=== PATIENT | female | born 1980 | race Hispanic/Latino ===

== ENCOUNTER 2021-11-25 15:52 | Observation (INO) | payer OTHER, SELFPAY ==
[2021-11-25] VITALS (31 sets, daily range): BP systolic 112–137; BP diastolic 48–83; PULSE 59–73; RESP 14–22; TEMP 36.3–36.6; O2SAT 100; BMI 28.5
[2021-11-25 16:15] LABS: Basophils Absolute Auto 0.1 K/mm3 (0.0-0.1); Basophils Percent Auto 1.2 % (0.2-1.2); Eosinophils Absolute Auto 0.3 K/mm3 (0-0.3); Eosinophils Percent Auto 4.4 % (0-4.4); Hematocrit 23.6 % (37.0-47.0); Immature Granulocyte Absolute 0.01 K/mm3 (0.00-0.031); Immature Granulocyte Percent A 0.2 % (0-0.5); Lymphocytes Absolute Auto 1.66 K/mm3 (0.9-3.2); Mean Corpuscular HGB Conc 26.7 g/dl (32-36); Mean Corpuscular Hemoglobin 17.2 pg (26-34); Mean Corpuscular Volume 64.3 fl (80-100); Mean Platelet Volume 9.7 fl (7.4-10.4); Monocytes Absolute Auto 0.5 K/mm3 (0.1-0.6); Monocytes Percent Auto 9.1 % (2.6-8.5); Neutrophils Absolute Auto 3.4 K/mm3 (1.3-6.7); Neutrophils Percent Auto 57.1 % (45.5-73.1); Platelet Count Result 454 k/mm3 (150-375); Red Blood Count 3.67 M/mm3 (4.2-5.4); White Blood Count 5.9 K/mm3 (4.5-10.0)
[2021-11-25 16:24] LABS: Alanine Aminotransferase 15 U/L (4-35); Albumin Level 4.4 g/dL (3.5-5.1); Alkaline Phosphatase 51 U/L (38-126); Anion Gap 7 mmol/L (8-16); Aspartate Amino Transferase 31 U/L (14-36); Bilirubin,Total < 0.1 mg/dL (0.2-1.3); Blood Urea Nitrogen 11 mg/dL (7-17); Calcium 8.2 mg/dL (8.4-10.2); Carbon Dioxide 26 mmol/L (22-30); Chloride 105 mmol/L (98-107); Estimated CRCL calculation 65 ml/min; Estimated Glomerular Filt Rate > 60; Glucose 100 mg/dL (65-110); Potassium 3.8 mmol/L (3.4-5.0); Sodium 138 mmol/L (137-145)
[2021-11-25 16:26] LABS: Prothrombin Time 13.2 Seconds (11.1-14.7)
[2021-11-25 16:27] LABS: Partial Thromboplastin Time 30.2 SECONDS (22.3-36.8)
[2021-11-25 16:28] LABS: Hemoglobin 6.3 g/dL (12.0-15.0)
[2021-11-25 16:29] LABS: Hypochromasia 2+ (NORMAL); Ovalocytes 1+ (NORMAL); Platelet Estimate Increased (Adequate)
--- NOTE | 2021-11-25 17:10 | ED.RECABL ---
HPI - Recheck/Abnormal Lab/Rx General Chief Complaint: Recheck/Abnormal Lab/Rx Stated Complaint: abnormal labs Time Seen by Provider: 11/25/21 16:57 History of Present Illness HPI narrative: Patient is a 41-year-old female who presents ER with low hemoglobin. Patient has been having dizziness and weakness outpatient and her doctor performed outpatient lab testing. Informed her that she was anemic and she should go to the ER for further evaluation. Patient denies any dark black stools or coffee-ground emesis. She denies menorrhagia. Reports history of anemia for which she is taking iron in the past. Reports compliance with home medications. Dizziness is spinning and can occur at rest or with standing. No chest pain or chest pressure. No diarrhea. Patient is able to eat. Related Data Allergies Allergy/AdvReac Type Severity Reaction Status Date / Time No Known Allergies Allergy Verified 11/25/21 17:20 Review of Systems Review of Systems: All systems reviewed & are unremarkable except as noted in HPI and below Constitutional: Constitutional: Denies chills, Reports fatigue, Denies fever(s) and Reports weakness ENT: Denies nasal congestion and Denies sore throat Cardiovascular: Cardiovascular: Denies chest pain, Denies rapid heart rate and Denies radiating jaw, neck or arm pain Respiratory: Respiratory: Denies cough and Denies dyspnea Gastrointestinal: Gastrointestinal: Denies abdominal pain, Denies diarrhea, Denies nausea and Denies vomiting Genitourinary: Genitourinary: Denies abnormal vaginal bleeding and Denies vaginal discharge PMFSH Past Medical History Medical History (Updated 11/25/21 @ 21:21 by Neftaly Colon MD) History of anemia Surgical History Surgical History (Updated 11/25/21 @ 17:12 by Neftaly Colon MD) No pertinent past surgical history Social History Social History (Updated 11/25/21 @ 17:12 by Neftaly Colon MD) Smoking status: Never smoker Exam Narrative: GENERAL: Well-appearing, well-nourished, and in no acute distress. HEAD: Normocephalic, atraumatic. EYES: PERRL and EOMI. pale conjunctiva. CHEST: Clear to auscultation. No respiratory distress. HEART: Regular rate and rhythm. Normal peripheral pulses. ABDOMEN: Soft, mild discomfort in left lower quadrant without rebound or guarding, nondistended. EXTREMITIES: Normal range of motion. No edema. SKIN: Warm, dry, no rash. Pale in appearance. NEURO: Alert and oriented x3. PSYCH: Normal mood and affect. Course Course Emergency Course: Patient informed of results. Admit to hospitalist service. Will transfuse. Vital Signs Vital signs: Vital Signs Temperature 97.6 F 11/25/21 16:01 Pulse Rate 71 11/25/21 16:01 Respiratory Rate 16 11/25/21 16:01 Blood Pressure 112/48 L 11/25/21 16:01 Pulse Oximetry 100 11/25/21 16:01 Temperature 97.4 F L 11/25/21 19:15 Pulse Rate 72 11/25/21 19:31 Respiratory Rate 18 11/25/21 19:31 Blood Pressure 131/83 11/25/21 19:31 Pulse Oximetry 100 11/25/21 19:31 MDM - Recheck/Abnormal Lab/Rx Lab Data Result diagrams: 11/25/21 16:08 11/25/21 16:08 Labs: Lab Results 11/25/21 11/25/21 11/25/21 Range/Units 16:08 16:08 16:08 WBC 5.9 (4.5-10.0) K/mm3 RBC 3.67 L (4.2-5.4) M/mm3 Hgb 6.3 L* (12.0-15.0) g/dL Hct 23.6 L (37.0-47.0) % MCV 64.3 L (80-100) fl MCH 17.2 L (26-34) pg MCHC 26.7 L (32-36) g/dl RDW 19.0 H (11.5-14.5) % Plt Count 454 H (150-375) k/mm3 MPV 9.7 (7.4-10.4) fl Immature Gran % (Auto) 0.2 (0-0.5) % Neut % (Auto) 57.1 (45.5-73.1) % Lymph % (Auto) 28.0 (18.3-44.2) % [place] % (Auto) 9.1 H (2.6-8.5) % Eos % (Auto) 4.4 (0-4.4) % Baso % (Auto) 1.2 (0.2-1.2) % Lymph # (Auto) 1.66 (0.9-3.2) K/mm3 [place] # (Auto) 0.5 (0.1-0.6) K/mm3 Eos # (Auto) 0.3 (0-0.3) K/mm3 Baso # (Auto) 0.1 (0.0-0.1) K/mm3 Abs Immat Gran (aut
[2021-11-25 17:24] LABS: Immature Reticulocyte Fraction 9.7 % (3.0-15.9); Reticulocyte Hemoglobin Conten 15.3 pg (28.2-35.7); Reticulocyte Percent 1.72 % (0.7-4.3); Reticulocytes Absolute 0.06 B/L (32.2-175.7)
[2021-11-25] MEDS: SODIUM CHLORIDE 0.9% IV 250 ML 30 ML IV CONT (17:58)
[2021-11-25 18:05] LABS: SARS-CoV-2 RNA PCR Negative
[2021-11-25] MEDS: TUBING, BLOOD PLUM PUMP TUBING 1 EACH XX (18:11)
[2021-11-25 18:50] LABS: Folic Acid 10.2 ng/mL (2.76->20); Vitamin B12 > 1000.0 pg/mL (239-931)
[2021-11-25 19:36] LABS: Iron 16 ug/dL (37-170)
[2021-11-25 19:46] LABS: Percent Iron Saturation 3 % (20-50)
[2021-11-25 20:13] LABS: Ferritin 3.75 ng/mL (6.24-137)
--- NOTE | 2021-11-25 20:19 | PM.IMHP ---
H&P: HPI History of Present Illness Date/Time: 11/25/21 20:19 Chief Complaint: Dizziness. Narrative: This is a 41-year-old female patient presents to the emergency room for evaluation after she was seen by her doctor due to dizziness for the last was 2 weeks or so she was found to have a hemoglobin 6.3. Patient states that there was 1 other time where she had similar problems however she has no recollection of events at that time can not tell exactly any studies that were done or what were the results. Patient denies any melena, bright red blood per rectum, coffee-ground emesis, hematemesis, she was feeling nauseous but no vomiting she was fatigue and dizzy and she was drinking in oatmeal and rise water to help it. Patient denies heavy menses or bleeding in between periods. Patient denies any unintentional weight loss has had good appetite and would say that her diet is good. Patient denies any abdominal pain, have has had paresthesias of bilateral lower extremities. Decision has been made to admit the patient for further evaluation, management and treatment. Review of Systems Review of Systems: Dizziness, nausea, bilateral lower extremity paresthesia, fatigue. Constitutional: Constitutional: Denies chills, Reports fatigue, Denies fever(s), Reports lethargy, Denies malaise, Denies night sweats, Denies poor appetite, Denies weakness and Denies weight loss Eyes: Eyes: Denies change in vision ENT: Denies dysphagia, Reports dizziness, Denies nasal congestion, Denies nasal discharge, Denies nasal obstruction and Denies odynophagia Cardiovascular: Cardiovascular: Denies chest pain, Denies pedal edema, Denies leg edema, Reports lightheadedness, Denies palpitations and Denies dyspnea Respiratory: Respiratory: Denies cough Gastrointestinal: Gastrointestinal: Denies abdominal pain, Denies melena, Denies hematochezia, Denies change in bowel habits, Denies dyspepsia, Denies heartburn, Denies diarrhea, Reports nausea, Denies vomiting and Denies hematemesis Genitourinary: Genitourinary: Denies dysuria Musculoskeletal: Musculoskeletal: Denies back pain, Denies arthralgias, Denies muscle cramps and Denies muscle weakness Integumentary/Breasts: Skin/Breast: Denies rash Neurologic: Denies focal weakness, Reports restless legs, Denies Sensory deficit (Neuro) and Reports tingling (Bilateral lower extremities.) Psychiatric: Psychiatric: Denies behavioral changes and Denies difficulty concentrating Endocrine: Endocrine: Denies cold intolerance, Denies heat intolerance, Denies polyphagia, Denies polydipsia, Denies polyuria and Denies palpitations Hematologic/Lymphatic: Hematologic/Lymphatic: Denies easy bleeding and Denies easy bruising Allergic/Immunologic: Allergic/Immunologic: Reports no additional allergic/immunologic complaints and Reports as per [facility] Past Medical History Medical History (Updated 11/26/21 @ 00:49 by Manjinder Brown MD) History of anemia Surgical History Surgical History (Updated 11/25/21 @ 17:12 by Neftaly Colon MD) No pertinent past surgical history Family History Family History (Updated 11/25/21 @ 23:36 by Manjinder Brown MD) Other Diabetes mellitus Social History Social History (Updated 11/25/21 @ 23:37 by Manjinder Brown MD) Smoking status: Never smoker Second hand tobacco smoke exposure: No Alcohol intake: never Substance use: never Substance use type: does not use Living arrangements: with family Spiritual care concerns: No Meds Home Medications and Allergies Home Medications Medication Instructions Recorded Confirmed Type No Home Medications 11/25/21 11/25/21 History Allergies Allergy/AdvReac Type Severity Reaction Status Date / Time No Known Allergies Allergy Verified 11/25/21 17:20 Vital Signs Vital Signs - 24 hr 11/25/21 16:01 11/25/21 17:11 11/25/21 17:15 Temperature 97.6 F Pulse Rate 71 68 71 Respiratory Rate 16 22 H 20 Blood P
[2021-11-25] MEDS: ACETAMINOPHEN 325 MG TABLET 650 MG PO (23:27)
--- NOTE | 2021-11-25 23:33 | ADMGEN ---
This patient, Jennifer Iraheta, was admitted to [address] [facility] Surg Room 324-01. Patient/family oriented to hospital policies and general routines including ID bracelet, bed and alarms, visiting hours, pain management, procedures, bathroom and other care routines, personal items, smoking policy, room service/diet, and visiting hours. Information on how to activate the Rapid Response Team has been discussed. Patient/Family are encouraged to report perceived risks to care and to ask questions if they do not understand what they are told or what they should do.
--- NOTE | 2021-11-25 23:39 | PC.NURSE ---
11/25/21 2312 pt arrived to floor w/family member roopa munguiaz (daughter). pt requested daughter translate during pt admission.
[2021-11-26 06:00] VITALS: BP 106/73; PULSE 64; RESP 16; TEMP 36.8; O2SAT 100
[2021-11-26 09:07] LABS: Hemoglobin 9.4 g/dL (12.0-15.0); Mean Corpuscular HGB Conc 28.5 g/dl (32-36); Mean Corpuscular Hemoglobin 19.6 pg (26-34); Mean Corpuscular Volume 68.9 fl (80-100); Platelet Count Result 459 k/mm3 (150-375); Red Blood Count 4.79 M/mm3 (4.2-5.4); White Blood Count 4.8 K/mm3 (4.5-10.0)
[2021-11-26] MEDS: FERROUS SULFATE 324 MG TABLET PO ×3 (10:15→17:34)
[2021-11-26 14:00] VITALS: BP 126/72; PULSE 58; RESP 16; TEMP 36.6; O2SAT 98
--- NOTE | 2021-11-26 14:50 | PCCCNOTE ---
On 11/26/21, the student, [Vilma Blackwell], provided care and completed [facility] documentation on this patient. I have reviewed the student's documentation and agree with the findings.
[2021-11-26 16:50] LABS: SPREG INTERNAL CONTROL Positive; Serum Qual hCG Negative
--- NOTE | 2021-11-26 17:06 | PM.DS ---
DS: Admitting Diagnosis Discharge Date 11/26/21 Admitting Diagnosis Weak DS: Discharge Diagnosis Discharge Diagnosis (1) Iron deficiency anemia: Code(s): D50.9 - Iron deficiency anemia, unspecified Status: Acute DS: Summary Hospital Course Reason for hospitalization: 41yo healthy female with hx of anemia here for wekaness and found to be anemic again. Please see H&P for details Hospital Course: In the emergency room, patient was hemodynamically stable. White count was normal. Hemoglobin was 6.3 and all of her indices were low. Platelet count was mildly elevated at 454K. Iron level was 16 with TIBC 478 an iron saturation 3%. Ferritin was low at 3.7. COVID was negative. B12 and folate levels were normal. test was negative. PT and PTT were normal. Patient was typed and crossed. No auto antibodies noted. Patient was transfused 2 units of packed red blood cells. Hemoglobin climbed to 9.3. Symptoms resolved. Patient is feeling better. She denies any lightheadedness, chest pain shortness of breath with walking. She does not have [place] menorrhagia. She normally bleed 2-3 days a month. She states her periods are not heavy. She is not on a vegetarian diet and does eat iron containing foods. She was on oral iron in the past but has not been so recently. She denies hemoptysis, epistaxis, hematemesis, hematuria, melena or hematochezia. GI was consulted but unable to get EGD today. Spoke with the GI doctor and he recommended outpatient evaluation. Patient was informed through a director consumer. Patient overall did well and was able to be discharged home on 11/26/2021. Status at Discharge Cognitive/behavioral status at discharge: Stable Time Spent with Patient Time attestation: Total time spent providing and/or coordinating discharge services: 34 minutes Time spent: Greater than 30 minutes Exam Narrative: AF 98.0 126/72 58 16 98% ra Gen - NARD Chest - CTA bilaterally, nml RR CV - RRR S1/S2 Abd - Soft, NT/ND, Positive BS Ext - No pedal edema Psych - Nml mood and affect Skin - Warm and dry DS: Data Data Completed and Pending Labs on day of discharge: Labs from last 24 hours 11/26/21 11/26/21 11/25/21 15:59 08:51 17:17 WBC 4.8 RBC 4.79 Hgb 9.4 L D Hct 33.0 L MCV 68.9 L D MCH 19.6 L D MCHC 28.5 L RDW 23.0 H Plt Count 459 H MPV 10.0 Absolute Retic Percent Retic Immature Retic Fraction Retic Hgb Content Iron TIBC % Saturation Ferritin Vitamin B12 Folate Serum HCG, Qual Negative SARS-CoV-2 RNA (RT-PCR) Negative Blood Type Antibody Screen Crossmatch 11/25/21 11/25/21 11/25/21 17:17 17:17 16:08 WBC RBC Hgb Hct MCV MCH MCHC RDW Plt Count MPV Absolute Retic 0.06 L Percent Retic 1.72 Immature Retic Fraction 9.7 Retic Hgb Content 15.3 L Iron 16 L TIBC 478 H % Saturation 3 L Ferritin 3.75 L Vitamin B12 > 1000.0 H Folate 10.2 Serum HCG, Qual SARS-CoV-2 RNA (RT-PCR) Blood Type Antibody Screen Crossmatch 11/25/21 16:08 WBC RBC Hgb Hct MCV MCH MCHC RDW Plt Count MPV Absolute Retic Percent Retic Immature Retic Fraction Retic Hgb Content Iron TIBC % Saturation Ferritin Vitamin B12 Folate Serum HCG, Qual SARS-CoV-2 RNA (RT-PCR) Blood Type A Positive Antibody Screen Negative Crossmatch See Detail Discharge Plan Discharge Attending physician on discharge: Eliseo Spicer Discharging Clinician: Eliseo Spicer Anticipated Discharge Date/Time: 11/26/21 17:15 Patient Disposition: Home, Self-Care Activity: as tolerated Diet: regular and heart healthy Discharge Instructions: Please avoid large gathering, wear face coverings in public and practice social distance. Contact your doctor or call 911 and come to the Emergency Room if you have any
--- NOTE | 2021-11-26 17:55 | PC.NURSE ---
Discharge instructions given to patient via conservation scientist.
== END 2021-11-26 18:05 | disposition home or self-care (01) ==
LOC: ANHED 21:21 → ANH3MEDSUR 11-26 09:16 → ANH2MED 11-30 10:52 → ANH3MEDSUR 11-30 10:52
PROVIDERS: Admitting Provider Hospitalist; Emergency Provider Emergency Medicine; Visit Provider Internal Medicine
DX: D50.9 Iron deficiency anemia, unspecified (principal); R42 Dizziness and giddiness
CPT/HCPCS: 36415; 36430; 80053; 82607; 82728; 82746; 83540; 83550; 84703; 85025; 85027; 85046; 85610; 85730; 86850; 86900; 86901; 86920; 96360; 96361; 99285; A9270; C9803; G0378; G0379; J7050; P9016; U0003; U0005

== ENCOUNTER 2022-11-17 09:14 | Outpatient (CLI) | payer OTHER, SELFPAY ==
--- NOTE | 2022-11-17 11:00 | NEURO_ITS ---
Impression: Patient reports a history of pain and numbness in right upper extremity. # Normal nerve conduction study. # Normal needle/EMG exam. # Clinical correlation recommended. Nerve Conduction Studies Anti Sensory Summary Table Stim Site NR Peak (ms) P-T Amp (?V) Site1 Site2 Delta-P (ms) Dist (cm) Denzel (m/s) Right Median Anti Sensory (2-3nd Digit) Wrist 2.7 46.2 Wrist 2-3nd Digit 2.7 14.0 52 Wrist 2.8 45.5 Wrist 2-3nd Digit 2.7 14.0 52 Right Radial Anti Sensory (Base 1st Digit) Wrist 1.8 71.6 Wrist Base 1st Digit 1.8 0.0 Right Ulnar Anti Sensory (5th Digit) Wrist 2.2 60.2 Wrist 5th Digit 2.2 14.0 64 Motor Summary Table Stim Site NR Onset (ms) O-P Amp (mV) Site1 Site2 Delta-0 (ms) Dist (cm) Denzel (m/s) Right Median Motor (Abd Poll Brev) Wrist 3.3 5.5 Elbow Wrist 3.8 21.0 55 Elbow 7.1 4.1 Right Ulnar Motor (Abd Dig Minimi) Wrist 2.1 8.3 A Elbow Wrist 4.6 27.0 59 A Elbow 6.7 7.1 B Elbow Wrist 3.1 19.0 61 B Elbow 5.2 7.4 F Wave Studies NR F-Lat (ms) L-R F-Lat (ms) Right Median (Mrkrs) (Abd Poll Brev) 26.79 Right Ulnar (Mrkrs) (Abd Dig Min) 24.55 EMG Side Muscle Nerve Root Ins Act Fibs Amp Dur Recrt Comment Right 1stDorInt Ulnar C8-T1 Nml Nml Nml Nml Nml Right Ext Indicis Radial (Post Int) C7-8 Nml Nml Nml Nml Nml Right Ext Digitorum Radial (Post Int) C7-8 Nml Nml Nml Nml Nml Right BrachioRad Radial C5-6 Nml Nml Nml Nml Nml Right PronatorTeres Median C6-7 Nml Nml Nml Nml Nml Right Abd Poll Brev Median C8-T1 Nml Nml Nml Nml Nml MTDD
== END 2022-11-17 09:15 | disposition home or self-care (01) ==
LOC: ANHNEURO 09:15
PROVIDERS: PCP Nurse Practitioner Family; Visit Provider Physician Assistant
DX: R20.2 Paresthesia of skin (principal)
CPT/HCPCS: 95886; 95909

== ENCOUNTER 2023-09-23 09:48 | Emergency (ER) | payer OTHER, SELFPAY ==
[2023-09-23] VITALS (8 sets, daily range): BP systolic 98–117; BP diastolic 52–71; PULSE 54–73; RESP 14–18; TEMP 36.1; O2SAT 99–100
--- NOTE | 2023-09-23 10:09 | ECG_ITS ---
Measurements Intervals [place] Rate: 61 P: 29 OK: 145 QRS: 62 QRSD: 86 T: 43 QT: 401 QTc: 404 Interpretive Statements SINUS RHYTHM NORMAL ECG NO PREVIOUS ECG AVAILABLE FOR COMPARISON Electronically Signed On 09-23-2023 16:53:25 [employer] by Lion Archuleta D.O.
--- NOTE | 2023-09-23 10:10 | ED.DIZZY ---
HPI - Dizziness General Chief Complaint: Dizziness Stated Complaint: dizzy, weakness, nausea Time Seen by Provider: 09/23/23 09:59 History of Present Illness HPI Narrative: 43-year-old Citizen [place]-speaking female with a history of iron deficiency anemia and blood transfusion 2 years ago reports for evaluation for dizziness x1 week. Patient describes the dizziness as the room is spinning and also states it is worse when she goes from sitting to standing position. She reports nausea and states she feels a ?emptiness? in her stomach when she gets nauseous. Denies vision changes, focal numbness or weakness, head injury or trauma, syncope. Denies melena or hematochezia, menorrhagia, chest pain or shortness of breath, abdominal pain, cough or congestion, fever. States she was evaluated 1 week ago at the onset of symptoms at [place] emergency department. She was told she was dehydrated and had anemia and was discharged home. She did not require a blood transfusion at that time. States her symptoms have progressively gotten worse which prompted her to come to the ER today. She does have a PCP and has an appointment with her PCP in 2 days. She was advised to follow up with the clinic in [place] regarding her anemia, however never followed up because she was told they do not have her information. She denies other medical history. She is not currently taking any medications including iron. Related Data Allergies Allergy/AdvReac Type Severity Reaction Status Date / Time No Known Allergies Allergy Verified 09/23/23 09:57 Review of Systems Review of Systems: CONSTITUTIONAL: Denies fever, chills, or sweats. EYES: Denies visual changes, redness, or discharge. ENT: Denies rhinorrhea, congestion, sore throat, or otalgia. CARDIOVASCULAR: Denies chest pain, palpitations, or edema. RESPIRATORY: Denies cough or dyspnea. GASTROINTESTINAL: Denies abdominal pain, nausea, vomiting, or diarrhea. GENITOURINARY: Denies dysuria or hematuria. SKIN: Denies rash or itching. MUSCULOSKELETAL: Denies back pain, joint pain, or myalgia. NEUROLOGIC: Denies headache, numbness, or weakness. PSYCHIATRIC: Denies anxiety or depression. [facility] Past Medical History Medical History History of anemia Surgical History Surgical History No pertinent past surgical history Family History Family History Other Diabetes mellitus Social History Social History Smoking status: Never smoker Second hand tobacco smoke exposure: No Alcohol intake: never Substance use: never Substance use type: does not use Living arrangements: with family Spiritual care concerns: No Exam Narrative: GENERAL: Ill-appearing, no acute distress. HEAD: Normocephalic, atraumatic. EYES: PERRLA and EOMI. ENT: Nares clear, no rhinorrhea or epistaxis. Mucous membranes moist. Bilateral TMs are evans and nonbulging. Normal canals. NECK: Supple. CHEST: Clear to auscultation. No respiratory distress. HEART: Regular rate and rhythm. No murmur heard. Normal peripheral pulses. ABDOMEN: Soft, nontender, nondistended, normal active bowel sounds. EXTREMITIES: Normal range of motion. No edema. SKIN: Warm, dry, no rash. NEURO: No focal deficits. Alert and oriented x3. Cranial nerves 2-12 intact. Strength 5/5 in BUE and BLE. Sensation intact throughout. Normal [id number]. No pronator drift. Course Vital Signs Vital signs: Vital Signs Temperature 97.0 F L 09/23/23 09:52 Pulse Rate 63 09/23/23 09:52 Respiratory Rate 18 09/23/23 09:52 Blood Pressure 105/52 L 09/23/23 09:52 Pulse Oximetry 100 09/23/23 09:52 Oxygen Delivery Room Air 09/23/23 09:52 Temperature 97.0 F L 09/23/23 09:52 Pulse Rate 57 L 09/23/23 14:00
[2023-09-23 10:15] LABS: Basophils Absolute Auto 0.1 K/mm3 (0.0-0.1); Basophils Percent Auto 0.9 % (0.2-1.2); Eosinophils Absolute Auto 0.2 K/mm3 (0-0.3); Eosinophils Percent Auto 3.3 % (0-4.4); Hematocrit 32.2 % (37.0-47.0); Hemoglobin 9.4 g/dL (12.0-15.0); Immature Granulocyte Absolute 0.01 K/mm3 (0.00-0.031); Immature Granulocyte Percent A 0.2 % (0-0.5); Lymphocytes Absolute Auto 2.15 K/mm3 (0.9-3.2); Lymphocytes Percent Auto 39.7 % (18.3-44.2); Mean Corpuscular HGB Conc 29.2 g/dl (32-36); Mean Corpuscular Hemoglobin 21.4 pg (26-34); Mean Corpuscular Volume 73.2 fl (80-100); Mean Platelet Volume 10.4 fl (7.4-10.4); Monocytes Absolute Auto 0.4 K/mm3 (0.1-0.6); Monocytes Percent Auto 8.1 % (2.6-8.5); Neutrophils Absolute Auto 2.6 K/mm3 (1.3-6.7); Neutrophils Percent Auto 47.8 % (45.5-73.1); Platelet Count Result 362 k/mm3 (150-375); Red Cell Distribution Width 16.2 % (11.5-14.5); White Blood Count 5.4 K/mm3 (4.5-10.0)
[2023-09-23] MEDS: MECLIZINE HCL 25 MG TABLET PO (10:17)
[2023-09-23] MEDS: ONDANSETRON INJ 4 MG/2 ML VIAL IV PUSH (10:17)
[2023-09-23] MEDS: SODIUM CHLORIDE 0.9% IV 1,000 ML 999 ML IV CONT ×2 (10:18→11:09)
[2023-09-23 10:20] LABS: Platelet Estimate Adequate (Adequate); Schistocytes None Seen (NORMAL)
[2023-09-23 10:21] LABS: Ovalocytes 1+ (NORMAL); Stomatocytes 2+ (NORMAL)
[2023-09-23 10:27] LABS: Alanine Aminotransferase 16 U/L (6-35); Albumin Level 4.2 g/dL (3.5-5.1); Alkaline Phosphatase 49 U/L (38-126); Anion Gap 7 mmol/L (8-16); Aspartate Amino Transferase 25 U/L (14-36); Bilirubin,Total 0.3 mg/dL (0.2-1.3); Blood Urea Nitrogen 11 mg/dL (7-17); Calcium 9.4 mg/dL (8.4-10.2); Carbon Dioxide 30 mmol/L (22-30); Chloride 101 mmol/L (98-107); Estimated CRCL calculation 82 ml/min; Estimated Glomerular Filt Rate > 60; Glucose 91 mg/dL (65-110); Potassium 4.1 mmol/L (3.4-5.0); Sodium 138 mmol/L (137-145)
[2023-09-23 10:41] LABS: Appearance Urine Clear (Clear); Bilirubin Urine Negative (Negative); Blood Urine Negative (Negative); Color Urine Yellow (Yellow); Glucose Urine UA Negative (Negative); Ketones Urine Negative (Negative); Leukocyte Esterase Ur Negative LEU/UL (Negative); Nitrate Urine Negative (Negative); Protein Urine Negative (Negative); Specific Grav Ur 1.011 (1.001-1.035); Urobilinogen Urine 0.2 mg/dL (<2.0)
[2023-09-23 10:42] LABS: Add Urine Microscopic? NO
[2023-09-23] MEDS: diazePAM INJ (*CRX) 10 MG/2 ML SYRINGE 5 MG IV PUSH (13:16)
== END 2023-09-23 14:35 | disposition home or self-care (01) ==
PROVIDERS: Emergency Provider Physician Assistant; PCP Nurse Practitioner Family
DX: R42 Dizziness and giddiness (principal); D50.9 Iron deficiency anemia, unspecified
CPT/HCPCS: 36415; 80053; 81003; 81025; 83735; 85025; 86850; 86900; 86901; 93005; 96361; 96374; 96375; 99284; A9270; J2405; J3360; J7030

== ENCOUNTER 2024-01-12 10:46 | Emergency (ER) | payer OTHER, SELFPAY ==
--- NOTE | ~2024-01-12 | CT_ITS ---
EXAMINATION: CT abdomen pelvis w con DATE: 01/12/2024 13:35 INDICATION: Right lower quadrant abdominal pain TECHNIQUE: Computed tomography (CT) of the abdomen and pelvis was performed with 100 mL Omnipaque-350 intravenous contrast. Automated exposure control and iterative reconstruction technique were employe d. The dose-length product was 374.80 mGy-cm. COMPARISON: Lung bases are clear. Heart size is normal. No pericardial or pleural effusion. Focal hep atic steatosis at the ligamentum teres. Gallbladder, spleen, pancreas, bilateral adrenal glands and k idneys are normal. There is fluid in the proximal colon consistent with diarrhea. No abnormal bowel w all thickening or obstruction. Normal appendix. Bladder, uterus and bilateral adnexa are unremarkable . 8 mm nabothian cyst at the cervix. No free intraperitoneal gas or fluid. No pathologically enlarged abdominal or pelvic lymphadenopathy. Chronic appearing mild anterior wedging at T11-L1 with moderate spondylosis at the thoracolumbar junction. FINDINGS: Fluid in the proximal colon consistent with nonspecific diarrhea. No other acute intra-abdominal/pelv ic process. IMPRESSION: 1. Reviewed, dictated and finalized at location A. IMPRESSION: 1.
[2024-01-12 10:47] VITALS: BP 121/68; PULSE 83; RESP 16; TEMP 36.6; O2SAT 100
[2024-01-12 11:16] LABS: Basophils Absolute Auto 0.1 K/mm3 (0.0-0.1); Basophils Percent Auto 0.3 % (0.2-1.2); Eosinophils Absolute Auto 0.2 K/mm3 (0-0.3); Eosinophils Percent Auto 0.8 % (0-4.4); Hematocrit 38.2 % (37.0-47.0); Hemoglobin 12.2 g/dL (12.0-15.0); Immature Granulocyte Absolute 0.05 K/mm3 (0.00-0.031); Immature Granulocyte Percent A 0.3 % (0-0.5); Lymphocytes Absolute Auto 0.34 K/mm3 (0.9-3.2); Lymphocytes Percent Auto 1.9 % (18.3-44.2); Mean Corpuscular HGB Conc 31.9 g/dl (32-36); Mean Corpuscular Hemoglobin 26.3 pg (26-34); Mean Corpuscular Volume 82.3 fl (80-100); Mean Platelet Volume 10.6 fl (7.4-10.4); Monocytes Absolute Auto 0.9 K/mm3 (0.1-0.6); Neutrophils Absolute Auto 16.7 K/mm3 (1.3-6.7); Neutrophils Percent Auto 91.7 % (45.5-73.1); Platelet Count Result 352 k/mm3 (150-375); Red Blood Count 4.64 M/mm3 (4.2-5.4); Red Cell Distribution Width 13.3 % (11.5-14.5); White Blood Count 18.2 K/mm3 (4.5-10.0)
[2024-01-12 11:28] LABS: Alanine Aminotransferase 15 U/L (6-35); Albumin Level 4.8 g/dL (3.5-5.1); Alkaline Phosphatase 50 U/L (38-126); Anion Gap 11 mmol/L (4-12); Aspartate Amino Transferase 25 U/L (14-36); Bilirubin,Total 0.6 mg/dL (0.2-1.3); Blood Urea Nitrogen 15 mg/dL (7-17); Calcium 8.9 mg/dL (8.4-10.2); Carbon Dioxide 20 mmol/L (22-30); Chloride 109 mmol/L (98-107); Estimated CRCL calculation 82 ml/min; Estimated Glomerular Filt Rate > 60; Glucose 127 mg/dL (65-110); Lipase 98 U/L (23-300); Potassium 4.3 mmol/L (3.4-5.0); Sodium 140 mmol/L (137-145)
[2024-01-12 11:40] LABS: Appearance Urine Turbid (Clear); Bacteria Urine 4+ /hpf; Bilirubin Urine Negative (Negative); Blood Urine 3+ (Negative); Color Urine Yellow (Yellow); Glucose Urine UA Negative (Negative); Ketones Urine Negative (Negative); Leukocyte Esterase Ur 1+ LEU/UL (Negative); Need Manual Microscopic Reviewed; Nitrate Urine Negative (Negative); Non Pathogenic Casts 0-2; Protein Urine 1+ mg/dL (Negative); RBC Urine 0-2 /hpf (0-2); Specific Grav Ur 1.021 (1.001-1.035); Squamous Epithelial Cell Urine Many /hpf (Few); Urobilinogen Urine 0.2 mg/dL (<2.0); pH Urine 5.5 (5.0-9.0)
[2024-01-12 11:42] LABS: Add Urine Microscopic? YES
--- NOTE | 2024-01-12 12:18 | ED.NAVMDI ---
HPI - Nausea/Vomiting/Diarrhea General Chief complaint: Nausea/Vomiting/Diarrhea Stated complaint: N/V Time Seen by Provider: 01/12/24 12:16 Source: patient Mode of arrival: ambulatory Limitations: language barrier ( Initially attempted to use interpretive services [employer] #[id number] however there are multiple logistical issues with the call having to be attempted multiple times; interpretation eventually assisted by patient's daughter) History of Present Illness HPI Narrative: 43-year-old presents with complaint of nausea, vomiting, and diarrhea that started at 4:00 a.m. this morning. Emesis and stool have been nonbloody. She denies any abdominal pain. She states that she has back/flank pain bilaterally particularly when she vomits. Last oral intake was 9:00 p.m. last night although she has not had an appetite for the past 2 days. She denies any fevers. Her last menstrual cycle was last week. She denies any new medications including no antibiotics. She denies any dysuria, hematuria, urgency, or frequency. She initially denies any prior abdominal surgeries confirms that she still has her gallbladder and appendix however she does state that she has had a prior Caesarean section. Related Data Allergies Allergy/AdvReac Type Severity Reaction Status Date / Time No Known Allergies Allergy Verified 09/23/23 09:57 PMF Past Medical History Medical History History of anemia Surgical History Surgical History History of section Family History Family History Other Diabetes mellitus Social History Social History Smoking status: Never smoker Second hand tobacco smoke exposure: No Alcohol intake: never Substance use: never Substance use type: does not use Living arrangements: with family Spiritual care concerns: No Exam Narrative: GENERAL: Well-appearing, well-nourished, and in no acute distress. HEAD: Normocephalic, atraumatic. EYES: Non injected, non icteric ENT: Nares clear, no rhinorrhea or epistaxis. NECK: Supple. CHEST: Speaking in full sentences. No respiratory distress. HEART: Regular rate and rhythm. . ABDOMEN: Soft, nondistended. Tender to palpation in the right lower quadrant Without rigidity or guarding EXTREMITIES: Normal range of motion. No edema. back/: no bilateral CVA tenderness. SKIN: Warm, dry, no rash. NEURO: No focal deficits. Alert and oriented x3. PSYCH: Normal mood and affect. Course Vital Signs Vital signs: Vital Signs Temperature 97.8 F 01/12/24 10:47 Pulse Rate 83 01/12/24 10:47 Respiratory Rate 16 01/12/24 10:47 Blood Pressure 121/68 01/12/24 10:47 Pulse Oximetry 100 01/12/24 10:47 Oxygen Delivery Room Air 01/12/24 10:47 Temperature 97.8 F 01/12/24 10:47 Pulse Rate 71 01/12/24 14:14 Respiratory Rate 18 01/12/24 14:14 Blood Pressure 119/73 01/12/24 14:14 Pulse Oximetry 100 01/12/24 14:14 Oxygen Delivery Room Air 01/12/24 10:47 MDM - Nausea/Vomiting/Diarrhea MDM Narrative Medical decision making narrative: patient presents with report of acute onset nausea, vomiting, and diarrhea this morning at 4:00 a.m.. She denies any fevers or abdominal pain. She is having some bilateral back/flank pain when she vomits. She has had anorexia/loss of appetite for the past 2 days. In the emergency department they are afebrile with vital signs within normal limits. She denies any urinary symptoms such as dysuria, hematuria, urgency, or frequency however there urinalysis does appear consistent with a urinary tract infection based on multiple measures. also considered pyelonephritis given patient's nausea and vomiting though no distinct CVA tenderness bilaterally. Although patie
[2024-01-12] MEDS: SODIUM CHLORIDE 0.9% IV 1,000 ML 999 ML IV CONT (12:52)
[2024-01-12] MEDS: ONDANSETRON INJ 4 MG/2 ML VIAL IV PUSH (12:53)
[2024-01-12 12:56] LABS: Magnesium 1.8 mg/dL (1.6-2.3)
--- NOTE | 2024-01-12 13:03 | PC.NURSE ---
Pt taken to ct at this time
[2024-01-12 13:37] LABS: Influenza A QL RT-PCR Negative (Negative); Influenza B QL RT-PCR Negative (Negative); SARS-CoV-2 RNA PCR Negative (Negative)
[2024-01-12 14:14] VITALS: BP 119/73; PULSE 71; RESP 18; O2SAT 100
== END 2024-01-12 14:14 | disposition home or self-care (01) ==
PROVIDERS: Family Medicine; Emergency Provider Student in an Organized Health Care Education/Training Program; PCP Nurse Practitioner Family
DX: K52.9 Noninfective gastroenteritis and colitis, unspecified (principal); D72.829 Elevated white blood cell count, unspecified; Z20.822 Contact with and (suspected) exposure to COVID-19; Z86.2 Personal history of diseases of the blood and blood-forming organs and certain disorders involving the immune mechanism
CPT/HCPCS: 36415; 74177; 80053; 81001; 81025; 83690; 83735; 85025; 87086; 87088; 87636; 96361; 96374; 99284; J2405; J7030; Q9967